=== PATIENT | female | born 1950 | race Caucasian/White ===

== ENCOUNTER → 2019-02-01 | Outpatient (CLI) | payer MEDICARE, OTHER | LOC: MC.RAD 16:46 | DX: Z12.31 Encounter for screening mammogram for malignant neoplasm of breast (principal) ==

== ENCOUNTER 2019-11-03 06:20 | Day surgery (SDC) | payer MEDICARE, OTHER ==
[~2019-11-03] VITALS: Ht 152.4 cm; Wt 70.2 kg
[2019-11-03] MEDS ORDERED: PRINIVIL10 MG PO (06:44)
[2019-11-03 06:45] VITALS: BP 128/70; PULSE 64; TEMP 97.5
[2019-11-03] MEDS ORDERED: LIPITOR 40MG TA40 MG PO (06:45)
[2019-11-03] MEDS ORDERED: ZOLOFT 50MG50 MG PO (06:45)
[2019-11-03 08:30] VITALS: BP 116/68; PULSE 60; TEMP 97
--- NOTE | 2019-11-03 08:30 | NUR ---
Patient arrives to [facility] [place] [facility] via cart, accompanied by ENDO RN Fátima Diaz. Bedside report is received. Patient is sleepy, but awakens to voice. She transfers to her chair in her room with standby assist. Chair is reclined, lights, dimmed, warm blanket applied for comfort. She denies pain or needs, just sleepy. Monitoring is applied - VSS and WNL on room air. Will allow her to rest, and continue to monitor.
[2019-11-03 08:45] VITALS: BP 116/56; PULSE 58
--- NOTE | 2019-11-03 08:45 | NUR ---
Patient is awake, watching TV. Denies pain or nausea. Offered something to eat/drink. Requests and receives tea and toast. Given more warm blankets for comfort.
[2019-11-03 09:00] VITALS: BP 119/57; PULSE 60
--- NOTE | 2019-11-03 09:00 | NUR ---
VSS and WNL on room air. She is tolerating PO well.
[2019-11-03 09:15] VITALS: BP 125/60; PULSE 64
--- NOTE | 2019-11-03 09:15 | NUR ---
Patient called nursing staff to her room. Upon entrance, it was noticed that her PIV had come unhooked and was leaking from the hub. As the patient has met discharge criteria, and is just waiting to speak with the doctor, the PIV was removed with hemostasis achieved and no complications.
--- NOTE | 2019-11-03 09:30 | NUR ---
Patient has met discharge criteria. Discharge instructions are discussed. She denies any questions and verbalizes understanding. Monitoring is removed. Patient is changing to her clothing independently and will wait to speak with Dr. Gipson prior to going home.
--- NOTE | 2019-11-03 10:08 | NUR ---
Dr. Gipson comes to the bedside and speaks with the patient.
--- NOTE | 2019-11-03 10:15 | NUR ---
Patient is escorted to the exit via wheelchair and discharged to home with ride in private vehicle at 1015.
== END 2019-11-03 10:15 | disposition home or self-care (01) ==
LOC: SDCO 06:20
DX: Z12.11 Encounter for screening for malignant neoplasm of colon (principal); D17.5 Benign lipomatous neoplasm of intra-abdominal organs; I10 Essential (primary) hypertension; E78.00 Pure hypercholesterolemia, unspecified; E78.5 Hyperlipidemia, unspecified; K21.9 Gastro-esophageal reflux disease without esophagitis; M81.0 Age-related osteoporosis without current pathological fracture; F32.9 Major depressive disorder, single episode, unspecified; F41.9 Anxiety disorder, unspecified; Z87.891 Personal history of nicotine dependence; Z20.828 Contact with and (suspected) exposure to other viral communicable diseases; Z85.828 Personal history of other malignant neoplasm of skin; Z79.899 Other long term (current) drug therapy; Z88.2 Allergy status to sulfonamides; Z98.51 Tubal ligation status
CPT/HCPCS: J2704; J7120

== ENCOUNTER → 2020-02-13 | Outpatient (CLI) | payer MEDICARE, OTHER ==
[~2020-02-13] MED LIST: LIPITOR 40MG TA40 MG PO; PRINIVIL10 MG PO; ZOLOFT 50MG50 MG PO
== END ==
LOC: MC.RAD 13:57
DX: Z12.31 Encounter for screening mammogram for malignant neoplasm of breast (principal)

== ENCOUNTER → 2020-09-17 | Outpatient (CLI) | payer MEDICARE, OTHER | LOC: COL.RAD 13:25 | DX: Z12.2 Encounter for screening for malignant neoplasm of respiratory organs (principal); I25.10 Atherosclerotic heart disease of native coronary artery without angina pectoris; I51.7 Cardiomegaly; R91.1 Solitary pulmonary nodule; Z87.891 Personal history of nicotine dependence ==

== ENCOUNTER 2021-02-02 09:01 | Emergency (ER) | payer MEDICARE, OTHER ==
[~2021-02-02] VITALS: Ht 152.4 cm; Wt 68.2 kg
[2021-02-02 09:06] VITALS: TEMP 98.7
[2021-02-02 10:48] VITALS: BP 132/85; PULSE 71
== END 2021-02-02 10:58 | disposition home or self-care (01) ==
LOC: COL.ER 09:01
DX: S06.0X9A Concussion with loss of consciousness of unspecified duration, initial encounter (principal); F41.9 Anxiety disorder, unspecified; F32.A Depression, unspecified; Z79.899 Other long term (current) drug therapy; W01.198A Fall on same level from slipping, tripping and stumbling with subsequent striking against other object, initial encounter

== ENCOUNTER → 2021-02-13 | Outpatient (CLI) | payer MEDICARE, OTHER | LOC: MC.RAD 09:59 | DX: Z12.31 Encounter for screening mammogram for malignant neoplasm of breast (principal) ==

== ENCOUNTER → 2021-09-19 | Outpatient (CLI) | payer MEDICARE, OTHER | LOC: COL.RAD 07:45 | DX: Z12.2 Encounter for screening for malignant neoplasm of respiratory organs (principal); R91.8 Other nonspecific abnormal finding of lung field; Z87.891 Personal history of nicotine dependence ==

== ENCOUNTER → 2022-03-13 | Outpatient (CLI) | payer MEDICARE, OTHER | LOC: MC.RAD 15:16 | DX: Z12.31 Encounter for screening mammogram for malignant neoplasm of breast (principal) ==

== ENCOUNTER → 2023-03-16 | Outpatient (CLI) | payer MEDICARE, OTHER | LOC: MC.RAD 14:20 | DX: Z12.31 Encounter for screening mammogram for malignant neoplasm of breast (principal) ==

== ENCOUNTER → 2023-10-12 | Outpatient (CLI) | payer MEDICARE | LOC: COL.RAD 06:48 | DX: R91.1 Solitary pulmonary nodule (principal); Z87.891 Personal history of nicotine dependence ==